=== PATIENT | male | born 1980 | race Two or more races ===

== ENCOUNTER 2020-08-12 18:10 | Emergency (ER) | payer SELFPAY ==
[~2020-08-12] VITALS: Ht 175.3 cm; Wt 74.8 kg
[2020-08-12 18:15] VITALS: BP 142/89
[2020-08-12 19:17] LABS: Albumin 4.2 g/dL (3.4-5.0); Calcium 8.5 mg/dL (8.5-10.1); Potassium 3.7 mmol/L (3.5-5.1)
[2020-08-12 19:21] LABS: BUN/Creatinine Ratio 32.4; Bilirubin, Total 1.5 mg/dL (0.2-1.0); Total Protein 8.1 g/dL (6.4-8.2)
[2020-08-12 19:36] LABS: Basophils # (auto) 0.1 10 ^3/uL (0-0.2); Basophils % (auto) 0.4 % (0.0-2.0); Eosinophils # (auto) 0 10 ^3/uL (0-0.8); Eosinophils % (auto) 0.1 % (0.0-7.0); Hematocrit 40.6 % (41.0-53.0); Hemoglobin 14.2 g/dL (13.5-17.5); Lymphocytes # (auto) 1.4 10 ^3/uL (0.4-5.4); Lymphocytes % (auto) 9.2 % (10.0-50.0); Mean Corpuscular Hemoglobin 31.7 pg (28.0-32.0); Mean Corpuscular Hgb Conc. 34.9 g/dL (32.0-36.0); Mean Corpuscular Volume 90.7 fL (80.0-100.0); Monocytes # (auto) 2.2 10 ^3/uL (0-1.3); Monocytes % (auto) 14.9 % (0.0-12.0); Neutrophils # (auto) 11.3 10 ^3/uL (1.6-8.6); Neutrophils % (auto) 75.4 % (37.0-80.0); Platelet Count (auto) 240 10^3/uL (140-450); Red Blood Cells 4.48 10^6/uL (4.5-5.90); Red Cell Distribution Width 12.8 % (11.8-14.3)
== END 2020-08-12 19:55 | disposition home or self-care (01) ==
LOC: ER 18:10
DX: L03.314 Cellulitis of groin (principal); F17.210 Nicotine dependence, cigarettes, uncomplicated
CPT/HCPCS: 36415; 80053; 85025

== ENCOUNTER 2020-08-14 00:53 | Inpatient (IN) | payer MEDICAID, OTHER ==
[~2020-08-14] VITALS: Ht 175.3 cm; Wt 85.5 kg
[2020-08-14 02:46] LABS: Basophils # (auto) 0 10 ^3/uL (0-0.2); Basophils % (auto) 0.3 % (0.0-2.0); Eosinophils # (auto) 0.1 10 ^3/uL (0-0.8); Eosinophils % (auto) 0.8 % (0.0-7.0); Hematocrit 39.2 % (41.0-53.0); Hemoglobin 13.6 g/dL (13.5-17.5); Lymphocytes # (auto) 1.2 10 ^3/uL (0.4-5.4); Lymphocytes % (auto) 13.5 % (10.0-50.0); Mean Corpuscular Hemoglobin 31.9 pg (28.0-32.0); Mean Corpuscular Hgb Conc. 34.8 g/dL (32.0-36.0); Mean Corpuscular Volume 91.8 fL (80.0-100.0); Monocytes # (auto) 0.9 10 ^3/uL (0-1.3); Monocytes % (auto) 10.9 % (0.0-12.0); Neutrophils # (auto) 6.4 10 ^3/uL (1.6-8.6); Neutrophils % (auto) 74.5 % (37.0-80.0); Nucleated Red Blood Cells % 0.1 %; Platelet Count (auto) 258 10^3/uL (140-450); Red Blood Cells 4.28 10^6/uL (4.5-5.90); Red Cell Distribution Width 12.8 % (11.8-14.3); White Blood Cell 8.6 10^3/uL (4.4-10.8)
[2020-08-14 03:06] LABS: Albumin 3.7 g/dL (3.4-5.0); BUN/Creatinine Ratio 29.4; Calcium 8.6 mg/dL (8.5-10.1); Potassium 3.3 mmol/L (3.5-5.1)
[2020-08-14 03:09] LABS: Bilirubin, Total 0.7 mg/dL (0.2-1.0); Total Protein 7.9 g/dL (6.4-8.2)
[2020-08-14] MEDS ORDERED: CLINDAMYCIN 900MG IV 50 ML IV ONE (03:45)
[2020-08-14] MEDS ORDERED: cefTRIAXone 1GM/50ML D5W 50 ML IV ONE (03:45)
[2020-08-14 04:56] LABS: Alcohol, Urine < 3.0 mg/dL (0-10); Amphetamine Screen, Urine POSITIVE (NEGATIVE); Cannabinoid Screen, Urine POSITIVE (NEGATIVE); Cocaine Screen, Urine NEGATIVE (NEGATIVE); Opiate Scree,Urine NEGATIVE (NEGATIVE); Phencyclidine Screen, Urine NEGATIVE (NEGATIVE)
[2020-08-14 05:03] LABS: Barbiturate Scree,Urine NEGATIVE (NEGATIVE); Benzodiazephine Screen, Urine NEGATIVE (NEGATIVE)
[2020-08-14 05:43] LABS: Urine Bacteria FEW /hpf (None Seen); Urine Blood Negative /uL (Negative); Urine Specific Gravity 1.029 (1.001-1.035); Urine WBC 3 /hpf (0 - 3)
[2020-08-14 05:44] LABS: Urine Ca Carbonate Crystal Many /hpf (None Seen)
[2020-08-14] MEDS: SODIUM CHLORIDE 0.9% 1,000 ML IV SCH (07:30)
[2020-08-14] MEDS ORDERED: TEMAZEPAM 15 MG CAP PO PRN (07:30)
[2020-08-14] MEDS ORDERED: ACETAMINOPHEN 325 MG TAB PO PRN (07:30)
[2020-08-14] MEDS ORDERED: FAMOTIDINE (10MG/ML) 2ML VL IV ONE (07:30)
[2020-08-14] MEDS ORDERED: POTASSIUM CHL 20 Meq TABLET PO ONE (07:30)
[2020-08-14] MEDS ORDERED: ONDANSETRON HCL 4 MG/2 ML VIAL IV PRN (07:30)
[2020-08-14] MEDS ORDERED: methylPREDNISolone SOD SUCC 125 MG/2 ML VL IV ONE (07:30)
[2020-08-14] MEDS ORDERED: diphenhdrAMINE HCL 50 MG/1 ML VL IV ONE (07:30)
[2020-08-14] MEDS: FAMOTIDINE 20 MG TAB PO SCH ×2 (09:26→22:16)
[2020-08-14] MEDS: cefTRIAXone 1GM/50ML D5W 50 ML IV SCH (10:01)
[2020-08-14] MEDS ORDERED: CLINDAMYCIN 600MG IV 50 ML IV SCH (14:00)
[2020-08-14 16:46] LABS: Hepatitis A Ab IgM Negative; Hepatitis B Core IgM Negative; Hepatitis B Surface Antigen Negative (Negative); Hepatitis C Antibody Negative (Negative)
[2020-08-14 16:51] VITALS: BP 133/82
[2020-08-14 17:00] VITALS: BP 139/86
--- NOTE | 2020-08-14 17:12 | NUR ---
MS admit from ER SANDRA CRAFT admitted to tele/MS after SBAR received. Patient oriented to PAULINA AMEZQUITA, primary RN, unit, room, bed, and unit policies regarding patient care and visiting hours. Patient weighed by bed scale and encouraged to call if they need something. All questions and concerns addressed, patient verbalized understanding. Note:
[2020-08-14] MEDS ORDERED: VANCOMYCIN PER PHARMACY 0 MG IV SCH (17:30)
[2020-08-14] MEDS: VANCOMYCIN 1GM/250ML 250 ML IV SCH (18:50)
--- NOTE | 2020-08-14 19:50 | NUR ---
OPENING SHIFT NOTE PT IS RESTING IN BED WITH EYES OPEN AND RESP RATE IS EVEN AND UNLABORED. NO S/S OF ANY DISTRESS NOTED AT THIS TIME. PT IS NOTED TO HAVE RED RASH IN GROIN AREA AND AN OPEN AREA ON INNER LEFT GROIN/THIGH THAT APPEARS LIKE A BLISTER THAT HAS ERUPTED. HE ALSO HAS REDNESS ON LE, SHINS AND TOPS OF BOTH FEET, BACK OF THE HANDS, AND FACE. THERE ARE RED LINES IN THE CIRCUMFERENCE OF THE BILAT LE THAT APPEAR LIKE MARKINGS FROM WEARING TIGHT SOCKS. PT IS ALSO WITH WOUNDS ON THE BOTTOMS OF HIS FEET OPEN TO AIR AND WITH NO DRAINAGE. POC DISCUSSED WITH PT AND PT VERBALIZES UNDERSTANDING. BED IS LOW, WHEELS ARE LOCKED, AND CALL LIGHT IS WITH IN REACH.
[2020-08-14 21:54] VITALS: BP 118/65
[2020-08-14] MEDS: diphenhdrAMINE HCL 50 MG/1 ML VL IV PRN (22:16)
[2020-08-15 05:00] VITALS: BP 116/68
[2020-08-15 05:55] LABS: Basophils # (auto) 0 10 ^3/uL (0-0.2); Basophils % (auto) 0.4 % (0.0-2.0); Eosinophils # (auto) 0 10 ^3/uL (0-0.8); Eosinophils % (auto) 0.3 % (0.0-7.0); Hematocrit 32.8 % (41.0-53.0); Hemoglobin 11.5 g/dL (13.5-17.5); Lymphocytes # (auto) 1.4 10 ^3/uL (0.4-5.4); Lymphocytes % (auto) 23.5 % (10.0-50.0); Mean Corpuscular Hemoglobin 32.2 pg (28.0-32.0); Mean Corpuscular Volume 91.9 fL (80.0-100.0); Monocytes # (auto) 0.7 10 ^3/uL (0-1.3); Monocytes % (auto) 11.2 % (0.0-12.0); Neutrophils # (auto) 3.9 10 ^3/uL (1.6-8.6); Neutrophils % (auto) 64.6 % (37.0-80.0); Nucleated Red Blood Cells % 0.1 %; Platelet Count (auto) 224 10^3/uL (140-450); Red Blood Cells 3.57 10^6/uL (4.5-5.90); Red Cell Distribution Width 12.9 % (11.8-14.3); White Blood Cell 6.1 10^3/uL (4.4-10.8)
[2020-08-15] MEDS: SODIUM CHLORIDE 0.9% 1,000 ML IV SCH ×2 (06:05→10:06)
[2020-08-15] MEDS: VANCOMYCIN 1GM/250ML 250 ML IV SCH (06:05)
[2020-08-15 06:07] LABS: Calcium 7.6 mg/dL (8.5-10.1); Potassium 3.4 mmol/L (3.5-5.1)
[2020-08-15 06:13] LABS: Albumin 2.8 g/dL (3.4-5.0); BUN/Creatinine Ratio 17.3; Bilirubin, Total 0.3 mg/dL (0.2-1.0); Total Protein 6.2 g/dL (6.4-8.2)
--- NOTE | 2020-08-15 08:15 | NUR ---
Opening Shift Note Assumed care of patient, awake and alert. No S/S of distress/SOB or pain. Instructed on POC and to call for assist PRN. Will continue to monitor for changes Q1hr and PRN.
[2020-08-15 09:00] VITALS: BP 116/55
[2020-08-15] MEDS: FAMOTIDINE 20 MG TAB PO SCH ×2 (10:05→22:18)
[2020-08-15] MEDS: cefTRIAXone 1GM/50ML D5W 50 ML IV SCH (10:06)
[2020-08-15] MEDS: diphenhdrAMINE HCL 50 MG/1 ML VL IV PRN (10:06)
--- NOTE | 2020-08-15 10:35 | NUR ---
ROUNDS DR RESENDEZ AT BEDSIDE
[2020-08-15] MEDS ORDERED: DOXYCYCLINE 100MG/250ML 250 ML IV ONE (11:00)
--- NOTE | 2020-08-15 11:10 | NUR ---
MD ROUNDS DR ENCARNACION AT BEDSIDE
--- NOTE | 2020-08-15 11:30 | NUR ---
WOUND CARE NOTE: Wound care in to see patient regarding wounds/skin issue that are noted on assessment. Bedside nurse took photograph of patient's wounds/skin issue upon admission for reference. Patient is 40 years old male admitted for Gen Body Rash. Patient is resting in bed in Rm. 215A. Patient is awake, alert and oriented. Patient is in no stated pain at this time and he appears to be in no pain using [place] Suresh Faces Pain Scale. He's self turning and repositioning and his Brando score is 19. Patient noted with multiple scabbed abrasions to forehead, bilateral foot, and heels. His bilateral distal plantar foot has unroofed dry blisters. Cleansed patient's bilateral feet and heels wounds with Betadine and leave open to air. Patient also noted with MASD/intertriginous rashes to bilateral groin, inner thighs and buttocks. Patient receiving BID/PRN cleaning and application of Z Guard cream to MASD/intertriginous dermatitis. Patient tolerated well. NO further wound care monitoring needed at this time. RECOMMENDATION: Nursing to continue with BID/PRN cleaning and application of Z Guard cream to sacral, buttocks and inner thighs, BID cleaning of bilateral heel, feet wounds with Betadine per MD order, reconsult for active wound, pressure injury, low Brando score of 12 and below. Addendum: 08/15/20 at 1405 by Izabel Ward RN Amended: Links added.
[2020-08-15 13:00] VITALS: BP 125/79
--- NOTE | 2020-08-15 14:29 | NUR ---
Assessment Social Service consult regarding patient being homeless. Patient states he was incarcerated and was release on Tuesday. Discussed with patient options and resources for placement. Provided information to clothes closet and meal prior to discharge. Patient accepted. Offered patient taxi voucher within 30 miles and Patient agreed. Patient informed me his family lives in [facility] and will be staying with family address: [address] [place] [address]. Completed home less assessment and patient signed homeless waiver. Patient was refer to [facility] consulted for No insurance. Addendum: 08/15/20 at 1431 by DORA CHANG Amended: Links added.
--- NOTE | 2020-08-15 14:41 | NUR ---
LAB UA SENT TO LAB PER MD ORDERS
[2020-08-15 15:52] LABS: Urine Bacteria NONE SEEN /hpf (None Seen); Urine Blood Negative /uL (Negative); Urine Mucus FEW (None Seen); Urine Specific Gravity 1.021 (1.001-1.035); Urine WBC 2 /hpf (0 - 3)
[2020-08-15 16:51] VITALS: BP 127/77
[2020-08-15 22:00] VITALS: BP 119/64
[2020-08-15] MEDS: DOXYCYCLINE 100MG/250ML 250 ML IV SCH (23:03)
[2020-08-16] MEDS: SODIUM CHLORIDE 0.9% 1,000 ML IV SCH (04:39)
[2020-08-16 05:00] VITALS: BP 119/65
[2020-08-16 05:10] LABS: RPR Non Reactive (Non Reactive)
[2020-08-16 05:55] LABS: Basophils # (auto) 0 10 ^3/uL (0-0.2); Basophils % (auto) 0.5 % (0.0-2.0); Eosinophils # (auto) 0 10 ^3/uL (0-0.8); Eosinophils % (auto) 0.9 % (0.0-7.0); Hematocrit 36.9 % (41.0-53.0); Hemoglobin 12.7 g/dL (13.5-17.5); Lymphocytes # (auto) 1.9 10 ^3/uL (0.4-5.4); Lymphocytes % (auto) 37.6 % (10.0-50.0); Mean Corpuscular Hgb Conc. 34.3 g/dL (32.0-36.0); Mean Corpuscular Volume 93.3 fL (80.0-100.0); Monocytes # (auto) 0.5 10 ^3/uL (0-1.3); Monocytes % (auto) 9.9 % (0.0-12.0); Neutrophils # (auto) 2.6 10 ^3/uL (1.6-8.6); Neutrophils % (auto) 51.1 % (37.0-80.0); Nucleated Red Blood Cells % 0.1 %; Platelet Count (auto) 253 10^3/uL (140-450); Red Blood Cells 3.96 10^6/uL (4.5-5.90); Red Cell Distribution Width 12.8 % (11.8-14.3); White Blood Cell 5.1 10^3/uL (4.4-10.8)
[2020-08-16 06:17] LABS: Potassium 3.2 mmol/L (3.5-5.1)
[2020-08-16 06:26] LABS: BUN/Creatinine Ratio 15.6
[2020-08-16 08:00] VITALS: BP 121/64
[2020-08-16] MEDS ORDERED: POTASSIUM CHL 20 Meq TABLET PO ONE (10:15)
[2020-08-16] MEDS: FAMOTIDINE 20 MG TAB PO SCH ×2 (10:34→23:23)
[2020-08-16] MEDS: DOXYCYCLINE 100MG/250ML 250 ML IV SCH ×2 (10:34→23:24)
--- NOTE | 2020-08-16 11:38 | NUR ---
md sandoval rounded on patient
[2020-08-16 12:00] VITALS: BP 124/71
[2020-08-16 17:00] VITALS: BP 139/80
--- NOTE | 2020-08-16 17:18 | NUR ---
PT REPORTS HAVING "SLIMY" STOOL EDUCATED PT NEXT TIME TO NOT FLUSH AND CALL A NURSE TO SEE STOOL
[2020-08-16 22:00] VITALS: BP 127/68
[2020-08-17 05:00] VITALS: BP 122/48
[2020-08-17 08:00] VITALS: BP 118/67
[2020-08-17] MEDS: FAMOTIDINE 20 MG TAB PO SCH ×2 (10:09→21:51)
[2020-08-17] MEDS: DOXYCYCLINE 100MG/250ML 250 ML IV SCH ×2 (10:56→23:15)
[2020-08-17 12:00] VITALS: BP 115/61
--- NOTE | 2020-08-17 12:12 | NUR ---
Nutrition Assessment Notes please see attached link for complete assessment Est energy needs BW 87 [id number] kcal (23-25 kcal/kg BW) Est protein needs 87-95g (1.0-1.1g/kg BW) Will reassess prn. Addendum: 08/17/20 at [address] Amended: Links added.
[2020-08-17 16:54] VITALS: BP 124/72
--- NOTE | 2020-08-17 19:15 | NUR ---
Opening Shift Note Assumed care of patient from [place], awake and alert. No S/S of distress/SOB or pain. Instructed on POC and to call for assist PRN, will continue to monitor for changes Q1hr and PRN.
[2020-08-17 22:00] VITALS: BP 133/70
[2020-08-17] MEDS: diphenhdrAMINE HCL 50 MG/1 ML VL IV PRN (23:29)
[2020-08-18 05:00] VITALS: BP 126/63
[2020-08-18 06:27] LABS: BUN/Creatinine Ratio 15.8; Potassium 3.8 mmol/L (3.5-5.1)
[2020-08-18 08:00] VITALS: BP 116/63
[2020-08-18] MEDS: FAMOTIDINE 20 MG TAB PO SCH ×3 (09:42→22:18)
[2020-08-18] MEDS: DOXYCYCLINE 100MG/250ML 250 ML IV SCH ×2 (11:26→22:18)
[2020-08-18 12:00] VITALS: BP 121/65
[2020-08-18 16:59] VITALS: BP 119/67
[2020-08-18 22:00] VITALS: BP 125/71
[2020-08-19 05:00] VITALS: BP 116/64
[2020-08-19 06:26] LABS: Basophils # (auto) 0 10 ^3/uL (0-0.2); Basophils % (auto) 0.4 % (0.0-2.0); Eosinophils # (auto) 0 10 ^3/uL (0-0.8); Eosinophils % (auto) 0.3 % (0.0-7.0); Hematocrit 39.4 % (41.0-53.0); Hemoglobin 13.5 g/dL (13.5-17.5); Lymphocytes # (auto) 1.5 10 ^3/uL (0.4-5.4); Lymphocytes % (auto) 19.7 % (10.0-50.0); Mean Corpuscular Hemoglobin 32.2 pg (28.0-32.0); Mean Corpuscular Hgb Conc. 34.4 g/dL (32.0-36.0); Mean Corpuscular Volume 93.6 fL (80.0-100.0); Monocytes # (auto) 0.7 10 ^3/uL (0-1.3); Monocytes % (auto) 9.4 % (0.0-12.0); Neutrophils # (auto) 5.3 10 ^3/uL (1.6-8.6); Neutrophils % (auto) 70.2 % (37.0-80.0); Platelet Count (auto) 319 10^3/uL (140-450); Red Blood Cells 4.21 10^6/uL (4.5-5.90); Red Cell Distribution Width 13.1 % (11.8-14.3); White Blood Cell 7.6 10^3/uL (4.4-10.8)
[2020-08-19 06:35] LABS: Calcium 8.3 mg/dL (8.5-10.1); Potassium 4.1 mmol/L (3.5-5.1)
[2020-08-19 06:39] LABS: BUN/Creatinine Ratio 14.3
[2020-08-19 08:30] VITALS: BP 107/68
[2020-08-19] MEDS: DOXYCYCLINE 100MG/250ML 250 ML IV SCH ×2 (10:47→22:59)
[2020-08-19 13:00] VITALS: BP 114/68
[2020-08-19 17:00] VITALS: BP 122/68
[2020-08-19 22:00] VITALS: BP 127/76
[2020-08-19] MEDS: FAMOTIDINE 20 MG TAB PO SCH (22:59)
[2020-08-20 05:00] VITALS: BP 114/71
--- NOTE | 2020-08-20 05:09 | NUR ---
WOUND CARE PERFORMED TO BILATERAL HEELS PER ORDER.
[2020-08-20 06:51] LABS: Basophils # (auto) 0 10 ^3/uL (0-0.2); Basophils % (auto) 0.4 % (0.0-2.0); Eosinophils # (auto) 0 10 ^3/uL (0-0.8); Eosinophils % (auto) 0.3 % (0.0-7.0); Hematocrit 39.5 % (41.0-53.0); Hemoglobin 13.5 g/dL (13.5-17.5); Lymphocytes # (auto) 1.5 10 ^3/uL (0.4-5.4); Lymphocytes % (auto) 20.6 % (10.0-50.0); Mean Corpuscular Hemoglobin 32.2 pg (28.0-32.0); Mean Corpuscular Hgb Conc. 34.2 g/dL (32.0-36.0); Mean Corpuscular Volume 94.1 fL (80.0-100.0); Monocytes # (auto) 0.7 10 ^3/uL (0-1.3); Monocytes % (auto) 9.4 % (0.0-12.0); Neutrophils % (auto) 69.3 % (37.0-80.0); Nucleated Red Blood Cells % 0.1 %; Platelet Count (auto) 328 10^3/uL (140-450); Red Blood Cells 4.19 10^6/uL (4.5-5.90); White Blood Cell 7.2 10^3/uL (4.4-10.8)
[2020-08-20 06:57] LABS: Potassium 4.4 mmol/L (3.5-5.1)
[2020-08-20 07:05] LABS: BUN/Creatinine Ratio 14.1; Calcium 8.5 mg/dL (8.5-10.1)
--- NOTE | 2020-08-20 07:42 | NUR ---
Opening Shift Note Assumed care of patient from noc shift rn, Will. Patient awake, A/O x4. No S/S of distress/SOB or pain reported. Plan of care discussed, encouraged to call for assist PRN. Bed in lowest and locked position, call light and phone within reach. Will continue to monitor for changes Q1hr and PRN.
[2020-08-20 08:00] VITALS: BP 123/76
[2020-08-20 09:00] VITALS: BP 123/76
[2020-08-20] MEDS: FAMOTIDINE 20 MG TAB PO SCH (10:25)
[2020-08-20] MEDS: DOXYCYCLINE 100MG/250ML 250 ML IV SCH (10:29)
--- NOTE | 2020-08-20 10:52 | NUR ---
PER UROLOGIC SURGEON AFTER CALLING TO FOLLOW UP WITH RHEUMOTOLOGIST CONSULT WITH DR. STOCK. THE MD WILL NOT BE COMING IN TODAY DUE TO PATIENT'S INSURANCE. HOWEVER, PATIENT CALL FOLLOW UP OUTPATIENT. DR. ALYSHA JOHNSON.
[2020-08-20] MEDS ORDERED: DOXY-286 PO (11:36)
[2020-08-20 13:00] VITALS: BP 119/63
--- NOTE | 2020-08-20 15:22 | NUR ---
Nutrition Followup Notes Pt wt is 27.8 kg Pt was sleeping when rounded this morning. Pt is with a Regular diet, appetite is good aeb 100% PO intake over 5 meals per RN doc. Pt with no distress per RN doc. Est energy needs BW 87 [id number] kcal (23-25 kcal/kg BW) Est protein needs 87-95g (1.0-1.1g/kg BW) Will reassess prn. LABS: ALB 2.8 L GI: Pt had 3 BMs on 08/19 BS: 21 low risk Refer to wound assessment report for full details. PES: Altered nutrition related lab values r.t current chronic medical condition aeb mod hypoalb hypocalcemia Comments Will continue to monitor PO status, skin status, pertinent labs and weight trends. Will f/u in 3-5 days. 1) consider MVI/C bid 2) continue current plan of care
--- NOTE | 2020-08-20 16:00 | NUR ---
Patient discharged home per MD's order. Discharge summary, including new prescription and discharge follow up with [facility] post-discharge clinic. Also Encouraged to follow up with rheumatology outpatient. patient verbalized understanding. voucher used at discharge.
== END 2020-08-20 16:00 | disposition home or self-care (01) | DRG 383 ==
LOC: ER 00:54 → OVERFLOW 00:55 → CENTRAL 16:14
PROVIDERS: ADMIT Nurse Practitioner; ATTEND Internal Medicine Pulmonary Disease
DX: L03.314 Cellulitis of groin (principal); F17.210 Nicotine dependence, cigarettes, uncomplicated; F15.90 Other stimulant use, unspecified, uncomplicated; F12.90 Cannabis use, unspecified, uncomplicated; N39.0 Urinary tract infection, site not specified; E87.6 Hypokalemia; S90.822A Blister (nonthermal), left foot, initial encounter; S90.821A Blister (nonthermal), right foot, initial encounter; Z20.828 Contact with and (suspected) exposure to other viral communicable diseases; X58.XXXA Exposure to other specified factors, initial encounter; Y93.89 Activity, other specified; Z80.9 Family history of malignant neoplasm, unspecified; Y92.89 Other specified places as the place of occurrence of the external cause; Y99.8 Other external cause status; M00.9 Pyogenic arthritis, unspecified; R15.9 Full incontinence of feces; F19.10 Other psychoactive substance abuse, uncomplicated
CPT/HCPCS: 36415; 74176; 80048; 80053; 80074; 80307; 81001; 83516; 83605; 84550; 85025; 85652; 86141; 86225; 86235; 86431; 86592; 86703; 87040; 87081; 87086; 96365; 96368; 96375; G0378; J0696; J3490